=== PATIENT | female | born 1970 | race Caucasian/White ===

== ENCOUNTER 2016-12-02 14:23 | Day surgery (SDC) | payer BC ==
[~2016-12-02] VITALS: Ht 165.1 cm; Wt 57.7 kg
[~2016-12-02 14:23] MED LIST: BUPR-34
[2016-12-02 15:15] VITALS: BP 118/73; PULSE 94; RESP 18; Ht 165.1 cm; Wt 57.7 kg
[2016-12-02] MEDS ORDERED: NO HOME MEDS (15:19)
[2016-12-02] MEDS ORDERED: MIDAZOLAM 1 MG/ML 2 ML INJ ONE ×4 (16:18)
[2016-12-02] MEDS ORDERED: FENTAnyl 50 MCG/ML VIAL ONE (16:18)
[2016-12-02 16:22] VITALS: BP 115/65; PULSE 70; RESP 18
--- NOTE | 2016-12-02 20:14 | GILP ---
DATE OF PROCEDURE: NAME OF PROCEDURES: Colonoscopy and biopsies. SURGEON: Daniel Rouse MD PREOPERATIVE DIAGNOSES 1. History of diarrhea. 2. History of ulcerative colitis. POSTOPERATIVE DIAGNOSES 1. Colonoscopy all the way to the cecum. 2. Normal colonic mucosa. 3. Random biopsies were taken to rule out microscopic colitis. 4. Internal hemorrhoids. INDICATION FOR THE PROCEDURE: Ms. Renate Madrigal is a 46-year-old female patient who has a history o f ulcerative colitis. She was on medications which she discontinued. The patient was complaining o f diarrhea off and on. The patient was scheduled for a colonoscopy for further evaluation. The procedure and possible complications are well explained to the patient, she understood and conse nted to the procedure. DESCRIPTION OF PROCEDURE: Under the influence of fentanyl and Versed, the colonoscope was carefully introduced into the rectum. Under direct vision, it was advanced all the way to the cecum. FINDINGS: The patient had normal colonic mucosa. Random biopsies were taken to rule out microscopi c colitis. The patient was noted to have internal hemorrhoids. She tolerated the procedure very well and there was no complication from the procedure. At the end of the procedure, she was awake with stable vital signs and she was discharged home in the care of h er family. IMPRESSION 1. Colonoscopy all the way to the cecum. 2. Normal colonic mucosa. 3. Random biopsies were taken to rule out microscopic colitis. 4. Internal hemorrhoids. PLAN 1. Await histopathology report. 2. Bentyl 10 mg p.o. t.i.d. p.r.n. for diarrhea. Dictated By: DANIEL DELGADO/EMANI Conf#: [id number] DID#: [id number]
== END 2016-12-02 17:15 | disposition home or self-care (01) ==
LOC: GIL 14:23
PROVIDERS: ATTEND Internal Medicine Gastroenterology
DX: R19.7 Diarrhea, unspecified (principal); K64.8 Other hemorrhoids
CPT/HCPCS: 45380; J2250; J3010; Z7610; 88305

== ENCOUNTER 2019-01-24 08:11 | Day surgery (SDC) | payer BC ==
[~2019-01-24] VITALS: Ht 165.1 cm; Wt 54.9 kg
[~2019-01-24 08:11] MED LIST changes: -BUPR-34; +NO HOME MEDS
[2019-01-24] MEDS ORDERED: cetirizine PO (08:53)
[2019-01-24] MEDS ORDERED: probiotic PO (08:53)
[2019-01-24 08:57] VITALS: Ht 165.1 cm; Wt 54.9 kg
[2019-01-24 09:03] VITALS: BP 114/66; PULSE 80; RESP 12
[2019-01-24] MEDS ORDERED: FENTAnyl 50 MCG/ML VIAL ONE (10:17)
[2019-01-24] MEDS ORDERED: MIDAZOLAM 1 MG/ML 2 ML INJ ONE ×3 (10:18)
[2019-01-24 10:35] VITALS: BP 108/62; PULSE 82; RESP 10
== END 2019-01-24 10:48 | disposition home or self-care (01) ==
LOC: GIL 08:11
PROVIDERS: ATTEND Internal Medicine Gastroenterology
DX: K51.90 Ulcerative colitis, unspecified, without complications (principal)
CPT/HCPCS: 45380; 84703; 88305; J2250; J3010; Z7610